=== PATIENT | male | born 1970 | race African-American/Black ===

== ENCOUNTER 2017-04-05 11:22 | Inpatient (IN) | payer MEDICARE, MEDICAID ==
[~2017-04-05] VITALS: Ht 177.8 cm; Wt 74.0 kg
[2017-04-11] MEDS ORDERED: EXTR500C PO (12:12)
[2017-04-12 06:20] VITALS: BP 85/64; PULSE 63; RESP 16; TEMP 98.2; O2SAT 97
[2017-04-12] MEDS ORDERED: IBUP800T23 PO (06:20)
[2017-04-12] MEDS ORDERED: CHLORHEXIDINE GLUCONATE 2 % 1 PACK (2 CLOTHS) TOPICAL PRN (06:30)
[2017-04-12] MEDS ORDERED: POVIDONE IODINE 5% (ANTISEPSIS KIT) 4 APPLICATIONS EACH NARE PRN (06:30)
[2017-04-12] MEDS ORDERED: LACTATED RINGER'S 1000 ML IV PRN (06:30)
[2017-04-12] MEDS ORDERED: METOPROLOL TARTRATE 25 MG TAB PO PRN (06:30)
[2017-04-12] MEDS ORDERED: INSULIN HUMAN REGULAR 1,000 UNITS/10 ML VIAL SQ PRN (06:30)
[2017-04-12] MEDS ORDERED: SODIUM CHLORID 0.9% 500 ML IV PRN (06:30)
[2017-04-12] MEDS ORDERED: VANCOMYCIN 1000 MG/NS 250 ML (for <70 kg) IV SCH ×2 (06:30)
[2017-04-12] MEDS ORDERED: ceFAZolin 2 GM PREMIX 50 ML IV SCH (06:30)
[2017-04-12] MEDS ORDERED: CHLORHEXIDINE GLUCONATE 4% SOLN 120 ML BTL TOPICAL SCH (06:30)
[2017-04-12] MEDS ORDERED: MIDAZOLAM HCL 2 MG/2 ML VIAL ONE (06:50)
[2017-04-12] MEDS ORDERED: DEXAMETHASONE SOD PHOS 4 MG/ML VIAL ONE (06:50)
[2017-04-12] MEDS ORDERED: FAMOTIDINE 20 MG/2 ML VIAL ONE (06:51)
[2017-04-12] MEDS ORDERED: GENTAMICIN SULFATE 80 MG/2 ML VIAL ONE (06:57)
[2017-04-12] MEDS ORDERED: ceFAZolin 2 GM PREMIX 50 ML ONE (06:57)
[2017-04-12] MEDS ORDERED: VANCOMYCIN HCL 1000 MG VIAL ONE (06:57)
[2017-04-12] MEDS ORDERED: SODIUM CHLOR 0.9% 250 ML INJ 250 ML ONE (06:57)
[2017-04-12] MEDS ORDERED: ACETAMINOPHEN 1000 MG/100 ML VIAL IV ONE (07:00)
[2017-04-12] MEDS ORDERED: HYDROmorphone HCL PF 2 MG/ML VIAL ONE (07:00)
[2017-04-12] MEDS ORDERED: fentaNYL CITRATE 250 MCG/5 ML AMP ONE (07:00)
[2017-04-12] MEDS ORDERED: BUPIVACAINE/EPINEPHRINE 0.25% 50 ML VIAL ONE (09:12)
[2017-04-12] MEDS ORDERED: diphenhydrAMINE HCL 25 MG CAP PO PRN (10:00)
[2017-04-12] MEDS ORDERED: SODIUM CHLORIDE 0.9% FLUSH 5 ML FLUSH IVF PRN (10:00)
[2017-04-12] MEDS ORDERED: ONDANSETRON HCL 4 MG/2 ML VIAL IVP PRN (10:00)
[2017-04-12] MEDS ORDERED: MORPHINE SULFATE 4 MG/ML INJ IV PUSH PRN (10:00)
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
[2017-04-12] MEDS ORDERED: ERGO1CAP30 PO (10:46)
[2017-04-12] MEDS ORDERED: *morphine SULFATE 8 MG/ML PERIprocedure ONLY ONE ×2 (10:46→11:01)
[2017-04-12] MEDS ORDERED: HYDR-3366 PO (10:46)
[2017-04-12] MEDS ORDERED: CALCTAB38 PO (10:46)
[2017-04-12] MEDS ORDERED: XARE10TA PO (10:46)
--- NOTE | 2017-04-12 10:49 | HHI.FF ---
Face to Face Verification Diagnosis: (1) Fracture of right femur with nonunion Nursing Dressing Changes: Daily dressing change, 4x4s, Xeroform, Coverderm/Primapore I have seen patient Grady Pike on 04/12/17. My clinical findings support the need for the requested home health care services because: Limited ability to care for self I certify that my clinical findings support that this patient is homebound because: Post-op weakness Mariano Dunlap Jr. April 12, 2017 10:49
[2017-04-12] MEDS ORDERED: ERGOCALCIFEROL (VIT D2) 50,000 UNIT CAP PO ONE (11:00)
[2017-04-12] MEDS ORDERED: ePHEDrine/NS 25 MG/5 ML SYR IV ONE (12:00)
[2017-04-12] MEDS ORDERED: NEOSTIGMINE 3 MG/3 ML SYR IV ONE (12:00)
[2017-04-12] MEDS ORDERED: PROPOFOL 200 MG/20 ML AMP IV ONE (12:00)
[2017-04-12] MEDS ORDERED: PHENYLEPH/NS 1000 MCG/10 ML SYR IV ONE (12:00)
[2017-04-12] MEDS ORDERED: ONDANSETRON HCL 4 MG/2 ML VIAL IV PUSH ONE (12:00)
[2017-04-12] MEDS ORDERED: LACTATED RINGER'S 1000 ML INJ 1,000 ML IV ONE (12:00)
--- NOTE | 2017-04-12 13:25 | RADRPT ---
EXAM DATE/TIME: 04/12/2017 09:28 [facility] COMPARISON: No previous studies available for comparison. INDICATIONS : Right femur hardware removal and intermedullary cj placement. OR. MEDICAL HISTORY : None. SURGICAL HISTORY : Hip fracture repair, right. Knee fracture repair, right. ENCOUNTER: Initial ACUITY: 1 day PAIN SCORE: Non-responsive. LOCATION: Right femur FINDINGS: 6 spot intraoperative fluoroscopic views of the right femur are obtained and demonstrate antegrade in tramedullary cj placement across the proximal femoral shaft fracture with 2 distal interlocking scre ws and proximal femoral neck pin fixation. 4 screws traverse the femoral condyles as well as screw fi xation of the proximal tibia. CONCLUSION: Postoperative changes are noted. Mj Davis MD on April 12, 2017 at 13:23 Board Certified Radiologist. This report was verified electronically.
[2017-04-12 14:45] VITALS: BP 138/80; PULSE 62; RESP 16; TEMP 95.5; O2SAT 98
[2017-04-12] MEDS: ceFAZolin 2 GM PREMIX 50 ML IV SCH ×2 (16:00→22:02)
[2017-04-12] MEDS: CALCIUM/VITAMIN D 250 MG/125 U TAB PO SCH ×2 (16:01→18:37)
[2017-04-12] MEDS: VANCOMYCIN INJ 1,000 MG in SODIUM CHLOR 0.9% 250 ML INJ 250 ML IV SCH (18:37)
[2017-04-12 19:55] VITALS: BP 121/72; PULSE 57; RESP 16; TEMP 96.3; O2SAT 100
[2017-04-12] MEDS: SODIUM CHLORIDE 0.9% FLUSH 5 ML FLUSH IVF SCH (20:25)
[2017-04-12] MEDS: ACETAMINOPHEN/HYDROcodone 325 MG/10 MG TAB PO PRN (22:18)
[2017-04-13 00:10] VITALS: BP 156/92; PULSE 66; RESP 16; TEMP 96.5; O2SAT 98
[2017-04-13] MEDS: ACETAMINOPHEN/HYDROcodone 325 MG/10 MG TAB PO PRN ×5 (01:31→14:12)
[2017-04-13 04:10] VITALS: BP 123/68; PULSE 74; RESP 16; TEMP 97.9; O2SAT 98
[2017-04-13] MEDS: ceFAZolin 2 GM PREMIX 50 ML IV SCH ×2 (05:23→14:11)
[2017-04-13] MEDS: VANCOMYCIN INJ 1,000 MG in SODIUM CHLOR 0.9% 250 ML INJ 250 ML IV SCH (06:02)
[2017-04-13 06:03] LABS: HEMATOCRIT 33.2 % (39.0-51.0); REVIEW FLAG FINAL
[2017-04-13] MEDS ORDERED: OXYC1TAB35 PO (06:47)
--- NOTE | 2017-04-13 06:56 | PD.ORT.PN ---
Subjective Subjective Remarks Pain controlled. No new complaints Objective Vitals Vital Signs Date Time Temp Pulse Resp B/P Pulse Ox O2 Delivery O2 Flow Rate FiO2 04/13/17 05:47 17 04/13/17 04:10 97.9 74 16 123/68 98 04/13/17 00:10 96.5 66 16 156/92 98 04/12/17 20:00 Nasal Cannula 2.00 04/12/17 19:57 Nasal Cannula 2.00 04/12/17 19:55 96.3 57 16 121/72 100 04/12/17 15:05 Nasal Cannula 2.00 04/12/17 14:45 95.5 62 16 138/80 98 04/12/17 13:45 97.9 58 16 96 04/12/17 13:00 56 16 138/63 96 04/12/17 12:00 58 14 138/66 98 04/12/17 11:30 66 16 134/64 99 04/12/17 11:15 60 14 126/66 97 04/12/17 11:00 63 16 122/61 98 04/12/17 10:45 74 16 128/75 100 Nasal Cannula 2 04/12/17 10:41 97.6 83 16 166/80 100 Nasal Cannula 2 I/O 04/12/17 04/12/17 04/12/17 04/13/17 04/13/17 04/13/17 07:00 15:00 23:00 07:00 15:00 23:00 Intake Total 1500 ml 360 ml 675 ml Output Total 400 ml 800 ml 150 ml Balance 1100 ml -440 ml 525 ml Intake Oral 360 ml 600 ml IV Total 75 ml Other 1500 ml Output Urine Total 800 ml 150 ml Estimated Blood Loss 400 ml Result Diagram: 04/13/17 0537 Imaging Last 72 hours Impressions Femur X-Ray 04/12/17 0000 Signed Impressions: Service Date/Time: Wednesday, April 12, 2017 09:28 - CONCLUSION: Postoperative changes are noted. Mj Davis MD Objective Remarks Right lower extremity: Clean dry dressings intact. Mild drainage. Distally intact sensation good capillary refills Assessment & Plan Assessment and Plan Right femur nonunion status post iliac crest bone graft removal of hardware and IM nail fixation POD 1 Dressing change today before discharge Physical therapy weightbearing as tolerated Lovenox with Xarelto after discharge Case management for home dressings Follow-up with Dr. Power or PA in 2 weeks Mariano Dunlap Jr. April 13, 2017 06:56
[2017-04-13] MEDS: CALCIUM/VITAMIN D 250 MG/125 U TAB PO SCH ×2 (07:45→14:11)
[2017-04-13] MEDS: SODIUM CHLORIDE 0.9% FLUSH 5 ML FLUSH IVF SCH (07:46)
[2017-04-13 07:55] VITALS: BP 131/64; PULSE 71; RESP 18; TEMP 98.3; O2SAT 96
[2017-04-13] MEDS ORDERED: ENOXAPARIN SODIUM 30 MG/0.3 ML SYRINGE SQ SCH (09:00)
[2017-04-13] MEDS ORDERED: CHOLECALCIFEROL (VIT D3) 5000 UNIT CAP PO SCH (09:00)
[2017-04-13 12:11] VITALS: BP 136/73; PULSE 92; RESP 18; TEMP 96.7; O2SAT 96
[2017-04-13] MEDS ORDERED: WALKER/ADULT/FO1 MIS (15:34)
[2017-04-13 15:54] VITALS: O2SAT 96
[2017-04-13 16:00] VITALS: BP 132/66; PULSE 80; RESP 18; TEMP 97.4; O2SAT 98
== END 2017-04-13 17:40 | disposition home health service (06) | DRG 482 ==
LOC: HSDI 04-12 05:41 → N06A 04-12 14:26
PROVIDERS: ADMIT Orthopaedic Surgery Orthopaedic Trauma; ATTEND Orthopaedic Surgery Orthopaedic Trauma
PROC: 0QR Lower Bones, Replacement (ICD-10-PCS; 2017-04-12)
PROC: 0QB20ZZ Excision of Right Pelvic Bone, Open Approach (ICD-10-PCS; 2017-04-12)
PROC: 0QS806Z Reposition Right Femoral Shaft with Intramedullary Internal Fixation Device, Open Approach (ICD-10-PCS; principal; 2017-04-12 07:15)
DX: S72.301A Unspecified fracture of shaft of right femur, initial encounter for closed fracture (principal); X58.XXXA Exposure to other specified factors, initial encounter
CPT/HCPCS: 73552; 76000; 82306; 85014; 85018; 87015; 87070; 87102; 87116; 87176; 87205; 87206; C1713; J0131; J0690; J1100; J1170; J1580; J1650; J2250; J2270; J2370; J2405; J2710; J3010; J3370; J7050; J7120